=== PATIENT | male | born 1975 | race African-American/Black ===

== ENCOUNTER 2019-04-17 03:42 | Emergency (ER) | payer OTHER ==
[2019-04-17] MEDS ORDERED: NORCO 5/325 PO ONE (04:00)
[2019-04-17] MEDS ORDERED: ALUM-MAG HYDROX-SIMETH 200-200-20MG/5ML PO ONE (04:09)
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
[2019-04-17] MEDS ORDERED: PEPCID PO ONE (04:10)
[2019-04-17 04:35] LABS: Basophils % (Auto) 0.2 % (0.0-1.8); Eosinophils % (Auto) 0.1 % (0.0-4.3); Hematocrit 40.8 % (35.5-45.6); Lymphocytes % (Auto) 6.3 % (13.4-35.0); Mean Corpuscular HGB Conc 34 % (32-34); Mean Corpuscular Volume 94 fl (84-94); Monocytes # (Auto) 0.8 K/mm3 (0.0-0.8); Monocytes % (Auto) 5.4 % (0.0-7.3); Platelet Count 270 K/mm3 (140-440); Red Blood Count 4.36 M/mm3 (3.65-5.03); Red Cell Distribution Width 13.8 % (13.2-15.2)
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
[2019-04-17 04:56] LABS: BUN/Creatinine Ratio 14; Blood Urea Nitrogen 15 mg/dL (9-20); Calcium 8.9 mg/dL (8.4-10.2); Hemolysis Index 6
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
[2019-04-17] MEDS ORDERED: ZOFRAN IV ONE ×2 (06:40→10:57)
[2019-04-17] MEDS ORDERED: SUBLIMAZE IV ONE ×3 (06:40→10:55)
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
[2019-04-17] MEDS ORDERED: REGLAN IV ONE (10:58)
[2019-04-17 13:32] VITALS: BP 118/62
== END 2019-04-17 13:32 | disposition other institution (70) ==
LOC: ED 03:42
DX: S37.032A Laceration of left kidney, unspecified degree, initial encounter (principal); S00.01XA Abrasion of scalp, initial encounter; F17.200 Nicotine dependence, unspecified, uncomplicated; V29.9XXA Motorcycle rider (driver) (passenger) injured in unspecified traffic accident, initial encounter; Y93.89 Activity, other specified; Y92.410 Unspecified street and highway as the place of occurrence of the external cause; Y99.8 Other external cause status
CPT/HCPCS: 36415; 70450; 71100; 71260; 72125; 74177; 80048; 84484; 85025; 86850; 86900; 86901; 93005; 93010; 96374; 96375; 96376; 99285; J2405; J2765; J3010; Q9967